=== PATIENT | male | born 1955 | race African-American/Black ===

== ENCOUNTER → 2017-12-12 | Day surgery (SDC) | payer BC ==
[2017-12-12 10:32] LABS: INR 1.45 (0.82-1.09); PROTHROMBIN TIME (PATIENT) 16.4 SEC (9.7-13.0)
[2017-12-12 10:35] LABS: ACTIVATED PTT 27.1 SECONDS (25.2-36.5)
[2017-12-12 11:38] VITALS: BP 87/55; PULSE 78; TEMP 98.4; BMI 20.6
== END | disposition home or self-care (01) ==
LOC: EDSEX 09:30 → JASU-SURG 09:45 → JOR 09:45
PROVIDERS: ATTEND Urology
PROC: 0TJB8ZZ Inspection of Bladder, Via Natural or Artificial Opening Endoscopic (ICD-10-PCS; principal; 2017-12-12)
DX: Z53.8 Procedure and treatment not carried out for other reasons (principal)
CPT/HCPCS: 36415; 85610; 85730

== ENCOUNTER 2018-02-06 10:41 | Day surgery (SDC) | payer BC ==
[2018-02-05 16:42] VITALS: BMI 20.6
[2018-02-06 11:18] LABS: BASO % 0.8 % (0-2.0); EOS % 1.2 % (0-4.5); HEMOGLOBIN 7.9 GM/dL (11.7-16.9); MCH 30.6 pg (25.7-33.7); MEAN CELL VOLUME 92.8 fl (80-96); MONO % 10.6 % (3.8-10.2); NEUT % 71.4 % (42.8-82.8); PLATELET COUNT 275 K/MM3 (134-434); RBC 2.59 M/mm3 (4.00-5.60); RDW 19.9 % (11.9-15.9); WHITE BLOOD COUNT 4.2 K/mm3 (4.0-10.0)
[2018-02-06 11:47] LABS: ALK PHOS 93 U/L (45-117); ANION GAP 5 (8-16); BILIRUBIN,TOTAL 0.2 mg/dL (0.2-1.0); BLOOD UREA NITROGEN 14 mg/dL (7-18); CALCIUM 8.7 mg/dL (8.5-10.1); CHLORIDE 105 mmol/L (98-107); CO2 30 mmol/L (21-32); CREATININE 0.8 mg/dL (0.7-1.3); GLUCOSE,RANDOM 72 mg/dL (74-106); SGOT/AST 11 U/L (15-37); SGPT/ALT 14 U/L (12-78); SODIUM 140 mmol/L (136-145); TOT PROT 7.4 g/dl (6.4-8.2)
[2018-02-06 11:51] LABS: INR 1.35 (0.83-1.09); PROTHROMBIN TIME (PATIENT) 15.2 SEC (9.7-13.0)
[2018-02-06] MEDS ORDERED: PROPOFOL 20 ML ONE (11:59)
[2018-02-06] MEDS ORDERED: MIDAZOLAM HCL 2 MG/2 ML SINGLE DOSE VIAL ONE (11:59)
--- NOTE | 2018-02-06 12:13 | OP ---
Operative Note - Note: Operative Date: 02/06/18 Pre-Operative Diagnosis: prostate cancer Operation: prostate cryoablation and cystoscopy Post-Operative Diagnosis: Same as Pre-op Surgeon: Brian Sheriff Anesthesiologist/FUNCTIONAL ARCHITECT: Chris Baldiwn Anesthesia: General Drains & Tubes with Location: 18 fr [address]iel Operative Report Dictated: Yes
[2018-02-06] MEDS ORDERED: ceFAZolin SODIUM 1 GM VIAL IVPB ONE (12:56)
[2018-02-06] MEDS ORDERED: ceFAZolin SODIUM 1 GM VIAL ONE (13:00)
[2018-02-06] MEDS ORDERED: BACITRACIN 15 GM TUBE TOPICAL OINTMENT ONE (13:45)
[2018-02-06] MEDS ORDERED: ONDANSETRON 4 MG/2 ML VIAL IVPUSH PRN (14:15)
[2018-02-06] MEDS ORDERED: LACTATED RINGERS SOLUTION 1,000 ML IV SCH (14:15)
[2018-02-06] MEDS ORDERED: oxyCODONE HCL 5 MG TABLET PO PRN (14:15)
[2018-02-06] MEDS ORDERED: NALOXONE HCL 0.4 MG/ML VIAL ONE (14:51)
[2018-02-06] MEDS ORDERED: ACETAMINOPHEN 1000 MG/100 ML VIAL (NON FORMULARY) IVPB ONE (15:41)
[2018-02-07 09:14] VITALS: BP 110/68; PULSE 105; TEMP 99.7
--- NOTE | 2018-02-07 10:26 | OP ---
DATE OF OPERATION: 02/06/2018 PREOPERATIVE DIAGNOSIS: Prostate cancer. POSTOPERATIVE DIAGNOSIS: Prostate cancer. PROCEDURE: Prostate cryoablation and cystoscopy. SURGEON: Brian Ortega MD CERTIFIED CORPORATE TRAVEL EXECUTIVE: None. ANESTHESIA: General via laryngeal mask. ANESTHESIOLOGIST: SPECIMEN: None. CULTURES: None. DRAINS: An 18-[place] Yap catheter. ESTIMATED BLOOD LOSS: Negligible. COMPLICATIONS: None. PROCEDURE: Patient was brought in the operating room and placed on the operating table in a supine position. After the administration of general anesthesia via laryngeal mask intravenous antibiotics were administered. Patient was placed in the dorsal lithotomy position. Perineum and genitals were prepped and draped in the usual sterile manner. An 18-[place] Yap catheter was placed per urethra; 10 mL was placed in the balloon. Urine was evacuated. The bladder was then filled with 300 mL of sterile normal saline and clamped. The transrectal ultrasound probe was inserted and the planning was done for the focal cryoablation of the right side. Once a plan was established the 3 cryo probes were placed in the predesignated locations. The measurements were taken, probe to probe, probe to urethra. Now longitudinally the length was set to approximately 3.6 cm on each probe. Now the [place]illi[place] and external sphincter temperature sensors were placed. Now Yap catheter was removed. Flexible cystoscopy was performed. This demonstrated the probes had not penetrated the prostatic urethra. The bladder was entered and thoroughly inspected. There were no foreign bodies, tumors, stones or inflammation. Both ureteral orifices were in their usual location with clear efflux bilaterally. The scope was retroflexed and no probes were seen penetrating the bladder wall. Now a superstiff guidewire was passed through the cystoscope into the bladder. Cystoscope was removed and urethral warmer was inserted over the superstiff guidewire into the bladder. The guidewire was removed and urethral warming was started. Now 2 freeze/thaw cycles were done on the right side of the prostate with excellent freezing of the gland. At the end of the procedure cryo and temperature sensor probes were removed. Urethral warmer was left in place for an additional 5 minutes. Yap catheter of 18-[place] was replaced. Sterile compressive dressing was placed on the perineum. He tolerated the procedure well, was awoken from anesthesia in the operating room and transferred to the recovery room in stable condition. BRIAN ORTEGA M.D. [id number]
== END 2018-02-07 09:17 | disposition home or self-care (01) ==
LOC: JASU-SURG 10:41 → J6S 18:55 → JASU-SURG 02-07 09:17
PROVIDERS: ATTEND Urology
PROC: 0V503ZZ Destruction of Prostate, Percutaneous Approach (ICD-10-PCS; principal; 2018-02-06 13:00)
DX: C61 Malignant neoplasm of prostate (principal)
CPT/HCPCS: 55873; C2618; 36415; 80053; 85025; 85610; 94760; J0131